=== PATIENT | male | born 1990 | race Two or more races ===

== ENCOUNTER 2019-09-19 15:51 | Emergency (ER) | payer MEDICAID ==
[~2019-09-19] VITALS: Ht 188 cm; Wt 95.3 kg
[2019-09-19 16:06] VITALS: BP 112/60
[2019-09-19] MEDS ORDERED: BACITRACIN TOP OINT 1 UD PKG TOP ONE (17:45)
[2019-09-19] MEDS ORDERED: LIDOCAINE 1% HCL (LOCAL ANESTH.) INJ 20ML MDV IJ ONE (17:45)
[2019-09-19] MEDS ORDERED: TETANUS-DIPTH-ACEL PERTUSSIS 0.5ML SYRG IM ONE (17:45)
== END 2019-09-19 18:17 | disposition home or self-care (01) ==
LOC: ER 15:51
DX: S61.210A Laceration without foreign body of right index finger without damage to nail, initial encounter (principal); J45.909 Unspecified asthma, uncomplicated; F17.210 Nicotine dependence, cigarettes, uncomplicated; X58.XXXA Exposure to other specified factors, initial encounter; Y93.89 Activity, other specified; Y92.89 Other specified places as the place of occurrence of the external cause; Y99.8 Other external cause status
CPT/HCPCS: 12001; 90471; 90715; 99283; J2001